=== PATIENT | male | born 1950 | race Caucasian/White ===

== ENCOUNTER → 2018-10-16 09:46 | Outpatient (CLI) | payer MEDICARE, OTHER, SELFPAY ==
--- NOTE | 2018-10-16 09:50 | US_ITS ---
STUDY: ABDOMINAL ULTRASOUND - RIGHT UPPER QUADRANT REASON FOR VISIT: Male, 68 years old. Right upper quadrant pain. TECHNIQUE: Ultrasound evaluation of the right upper quadrant was performed with real-time and static hollins-scale imaging. TECHNICAL QUALITY: Adequate. COMPARISON: CT dated October 17, 2016 FINDINGS: Liver: The liver measures 15.4 cm. There is normal echogenicity of the liver. The bile ducts are within normal limits. There is hepatic color flow. The direction of portal flow is hepatopetal. There is no demonstrated mass lesion. Gallbladder: The patient is status post cholecystectomy. Common Bile Duct (C.B.D.): The common bile duct measures 2.6 mm. Pancreas: Normal size of the head, body and tail of the pancreas. There is normal echogenicity of the pancreas. There is no demonstrated pancreatic mass or cyst. Right Kidney: Normal size of the right kidney. The right kidney measures 10.9 cm in length. Normal renal cortex. There is a simple right renal cyst measuring 6.0 x 6.8 x 6.1 cm. There is no right hydronephrosis. US/Abdomen Limited IMPRESSION: 6.0 x 6.8 x 6.1 cm right renal cyst. Electronically Signed: Manjula Mora MD at 16:53 EST Tel , Service support ,
== END ==
PROVIDERS: Family Provider Internal Medicine; PCP Internal Medicine; Referring Provider Internal Medicine; Visit Provider Internal Medicine
DX: R10.11 Right upper quadrant pain (principal)
CPT/HCPCS: 76705

== ENCOUNTER → 2020-11-24 08:22 | Outpatient (CLI) | payer MEDICARE, OTHER, SELFPAY ==
[2020-11-10 11:12] VITALS: BMI 25.9
--- NOTE | 2020-11-23 | BON_PTH ---
PATIENT: KUMAR RUBALCAVA LOC: [facility] U#:[id number] AGE/SX: 75/M ROOM: RE11/24/[address]: Dr. Allie Castro MD : 1950 BED: DIS: SPEC #: [id number] RECD: 11/24/20 09:21 STATUS: PATY REEdelmira #: [id number] RALPH: 11/23/20 00:[address]: Allie Castro DEPT: SURGICAL PATHOLOGY RECD BY: Lenard Mata ENTERED: 11/24/20 09:21 SP TYPE: Bone OTHR DR: Dr. Mariluz Morris DO Tissues: A - Vertebra, NOS B - Vertebra, NOS Procedures: Decalcification bone/plaque Surgery Specimen Level IV HEADER OPERATION: Kyphoplasty PRE-OP DIAGNOSIS: L4 level compression fracture; T12 level compression fracture TISSUE SUBMITTED: A - Biopsy L4 level, B - Biopsy T12 level MICROSCOPIC DIAGNOSIS A. L4 bone, biopsy: Trilineage hematopoiesis. See comment. B. T12 bone, biopsy: Bone with trilineage hematopoiesis and focal changes consistent with fracture callous. AM:demetrius 11/28/2020 COMMENT A. Sections show a trilineage hematopoiesis that is hypercellular for age. Clinical correlation is suggested. MICROSCOPIC DESCRIPTION Slides are reviewed. GROSS DESCRIPTION A - Received in fixative is one container labeled with the patient's name and designated L4. The specimen consists of multiple fragments of blood clot that in aggregate measure 2.5 x 1.5 x 0.1 cm. No obvious bone is identified. The entire specimen is submitted in one cassette. B - Received in fixative is one container labeled with the patient's name and designated T12. The specimen consists of multiple irregular fragments of hopson soft tissue with possible fragments of bone that in aggregate measure 1.5 x 0.5 x 0.1 cm. The entire specimen is submitted in one cassette after decalcification. / BRANT:demetrius 11/24/20 TC:3 CPT: 79049 x2, 82702
== END ==
PROVIDERS: PCP Internal Medicine; Referring Provider Anesthesiology Pain Medicine; Visit Provider Anesthesiology Pain Medicine
DX: M48.54XA Collapsed vertebra, not elsewhere classified, thoracic region, initial encounter for fracture (principal); M48.56XA Collapsed vertebra, not elsewhere classified, lumbar region, initial encounter for fracture
CPT/HCPCS: 88305; 88311

== ENCOUNTER → 2021-01-09 13:52 | Outpatient (CLI) | payer MEDICARE, OTHER, SELFPAY ==
--- NOTE | 2021-01-09 13:58 | BD_ITS ---
STUDY: DUAL ENERGY X-RAY ABSORPTIOMETRY / DXA REASON FOR EXAM: Male, 70 years old. Hx of compression fx TECHNIQUE: Bone Mineral Density (BMD) measurements of lumbar spine and bilateral hips were obtained. COMPARISON: None. FINDINGS: Lumbar Spine (L1-L4): g/cm2 (1.528) / T-score (2.4) / Z-score (3.0) Findings are suggestive of normal bone density with a low fracture risk. Left Femur Total: g/cm2 (0.942) / T-score (-1.1) / Z-score (-0.3) Left Femoral Neck: g/cm2 (0.824) / T-score (-1.9) / Z-score (-0.6) Right Femur Total: g/cm2 (0.976) / T-score (-0.9) / Z-score (-0.1) Right Femoral Neck: g/cm2 (0.878) / T-score (-1.5) / Z-score (-0.2) BD/Dexa Bone Density Study IMPRESSION: The patient is considered osteopenic as outlined below according to World James Organization (WHO) criteria with a moderate fracture risk. Reference Information: The T-score is the number of standard deviations above or below the standard which is normal for young adults at their peak bone mineral density. The World Health Organization (WHO) interprets the T-scores as follows: Above -1 Normal bone density Between -1 and -2.5 Osteopenia Equal to / or below -2.5 Osteoporosis As a practical clinical guideline, osteopenia may be graded as follows: Mild -1 through -1.5 Moderate -1.6 through -2.0 Severe -2.1 through -2.4 The Z-score is the number of standard deviations above or below age-matched controls. A Z-score of less than -1.5 would be considered abnormal. References: 1. NIH Osteoporosis and Related Bone Diseases www osteo.org 2. International Society for Clinical Densitometry www iscd.org 3. National Osteoporosis Foundation www nof.org Electronically Signed: Gil Bolaños MD at 15:47 EDT , Service support ,
== END ==
PROVIDERS: PCP Internal Medicine; Referring Provider Orthopaedic Surgery; Visit Provider Orthopaedic Surgery
DX: S22.080A Wedge compression fracture of T11-T12 vertebra, initial encounter for closed fracture (principal)
CPT/HCPCS: 77080

== ENCOUNTER → 2021-02-28 16:12 | Outpatient (CLI) | payer MEDICARE, OTHER, SELFPAY ==
--- NOTE | 2021-02-28 16:32 | RAD_ITS ---
STUDY: X-RAY - LUMBAR SPINE REASON FOR EXAM: Male, 70 years old. TRAUMA TECHNIQUE: 2 view(s) of the lumbar spine were obtained. COMPARISON: 12/25/2020 FINDINGS: Normal lumbar lordosis. Mild dextroscoliosis centered at L2. There is a normal alignment of the vertebrae. Mild compression fractures of T12 and L4 treated with vertebroplasty which is unchanged. There is multi-level degenerative disc disease with multi-level disc space narrowing. The soft tissue structures are unremarkable. RAD/Lumbar Spine 2 or 3 Views IMPRESSION: 1. Chronic mild compression fractures of T12 and L4 treated with vertebroplasty. 2. Mild dextroscoliosis with diffuse degenerative disc disease. Electronically Signed: Hitesh Condon MD at 16:59 EDT Tel , Service support ,
--- NOTE | 2021-02-28 16:32 | RAD_ITS ---
STUDY: X-RAY - THORACIC SPINE REASON FOR EXAM: Male, 70 years old. TRAUMA TECHNIQUE: 3 view(s) of the thoracic spine were obtained. COMPARISON: None. FINDINGS: Normal kyphosis of the thoracic spine. There is no substantial scoliosis. There is multilevel endplate spondylosis of the thoracic vertebrae. There is multilevel disc space narrowing of the thoracic spine. Chronic mild compression fracture of T12 treated with vertebroplasty. The soft tissue structures are unremarkable. RAD/Thoracic Spine 2 Views IMPRESSION: No acute fracture or subluxation. Electronically Signed: Hitesh Condon MD at 17:02 EDT Tel , Service support ,
== END ==
PROVIDERS: PCP Internal Medicine; Referring Provider Anesthesiology Pain Medicine; Visit Provider Anesthesiology Pain Medicine
DX: Z04.3 Encounter for examination and observation following other accident (principal); M51.36 Other intervertebral disc degeneration, lumbar region
CPT/HCPCS: 72070; 72100

== ENCOUNTER → 2021-03-28 13:37 | Outpatient (CLI) | payer MEDICARE, OTHER, SELFPAY ==
--- NOTE | 2021-03-28 13:43 | RAD_ITS ---
STUDY: X-RAY - THORACIC SPINE REASON FOR EXAM: Male, 70 years old. BACK PAIN TECHNIQUE: 3 view(s) of the thoracic spine were obtained. COMPARISON: None. FINDINGS: There is an increase in the normal thoracic kyphosis. There is no substantial scoliosis. There is demineralization of the thoracic spine with endplate spondylosis. There is multilevel disc space narrowing of the thoracic spine. The soft tissue structures are unremarkable. RAD/Thoracic Spine 3 Views IMPRESSION: Multilevel disc space narrowing and spondylosis. Increased kyphosis. Electronically Signed: Gil Bolaños MD at 15:27 EDT , Service support ,
== END ==
PROVIDERS: PCP Internal Medicine; Referring Provider Anesthesiology Pain Medicine; Visit Provider Anesthesiology Pain Medicine
DX: M54.9 Dorsalgia, unspecified (principal)
CPT/HCPCS: 72072

== ENCOUNTER → 2022-06-10 | Outpatient (CLI) | payer MEDICARE, OTHER, SELFPAY ==
--- NOTE | 2022-06-10 15:58 | CT_ITS ---
STUDY: CT BRAIN WITHOUT CONTRAST REASON FOR EXAM: Male, 72 years old. Severe new onset duque, male over 50. RADIATION DOSAGE (If Supplied By Facility): CTDIvol = ( 44.99 ) mGy, DLP = ( 762.36 ) mGycm TECHNIQUE: Transaxial CT imaging of the brain was performed without administration of intravenous contrast material. Individualized dose optimization techniques were used for this CT. COMPARISON: 03/18/2016 FINDINGS: Normal soft tissue structures. Normal calvarium. Calcific plaquing of cavernous carotids Mild atrophy and periventricular white matter ischemic changes. Normal basal ganglia and thalami. Normal brainstem. Normal cerebellum. There is no intracranial hemorrhage. There are no findings of an acute ischemic infarction. Postsurgical changes of the orbits Normal visualized paranasal sinuses. No significant interval change since prior exam CT/Brain/Head without Contrast IMPRESSION: Mild atrophy and periventricular white matter ischemic change. No evidence for obstructive hydrocephalus mass or acute bleed. Electronically Signed: Jeferson Nolan MD at 16:22 EDT ,
--- NOTE | 2022-06-10 16:04 | RAD_ITS ---
STUDY: X-RAY - CERVICAL SPINE REASON FOR EXAM: Male, 72 years old. headaches with radiation to trap., arms TECHNIQUE: XR Spine Cervical 4 or 5 Views COMPARISON: None FINDINGS: Normal anterior atlantoaxial articulation. No acute findings of the odontoid process. There is straightening of the normal cervical lordosis. There is multi-level endplate spondylosis. There is multi-level degenerative disc disease with multilevel disc space narrowing. There is multi-level osseous foraminal stenosis. The soft tissue structures are unremarkable. RAD/Cerv Spine 2 or 3 Views IMPRESSION: There are degenerative changes as noted above. Electronically Signed: Fidencio Soler MD at 17:42 EDT ,
== END | disposition home or self-care (01) ==
PROVIDERS: PCP Internal Medicine; Referring Provider Nurse Practitioner Family; Visit Provider Nurse Practitioner Family
DX: R51.9 Headache, unspecified (principal)
CPT/HCPCS: 70450; 72040

== ENCOUNTER → 2024-04-19 | Outpatient (CLI) | payer MEDICARE, OTHER, SELFPAY ==
--- NOTE | 2024-04-19 15:30 | RAD_ITS ---
STUDY: X-RAY - LUMBAR SPINE REASON FOR EXAM: Male, 73 years old. RADICULOPATHY,LUMBAR REGION SCIATICA,UNSPECIFIED SIDE TECHNIQUE: 3 view(s) of the lumbar spine were obtained. COMPARISON: None FINDINGS: Normal lumbar lordosis. There is no substantial scoliosis. There is a normal alignment of the vertebrae. Mild compression fractures of the T12 and L4 vertebral bodies treated with vertebroplasty. No acute compression fracture. There is multi-level degenerative disc disease with multi-level disc space narrowing. Multilevel facet hypertrophy in the lower lumbar spine. The soft tissue structures are unremarkable. RAD/Lumbar Spine 2 or 3 Views IMPRESSION: 1. Compression fractures of T12 and L4 treated with vertebral plasty. 2. Diffuse degenerative disc disease. Electronically Signed: Hitesh Condon MD at 10:22 EDT ,
== END | disposition home or self-care (01) ==
PROVIDERS: PCP Internal Medicine; Referring Provider Anesthesiology Pain Medicine; Visit Provider Anesthesiology Pain Medicine
DX: M51.36 Other intervertebral disc degeneration, lumbar region (principal); M51.16 Intervertebral disc disorders with radiculopathy, lumbar region
CPT/HCPCS: 72100

== ENCOUNTER → 2025-04-26 | Outpatient (CLI) | payer MEDICARE, OTHER, SELFPAY ==
--- NOTE | 2025-04-25 13:10 | LES_PTH ---
PATIENT: KUMAR RUBALCAVA [facility] U#:[id number] AGE/SX: 74/M ROOM: RE04/26/[address]: Dr. Maurilio Kerns MD : 1950 BED: DIS: 04/26/2025 SPEC #: [id number] RECD: 04/26/25 16:54 STATUS: PATY REEdelmira #: [id number] RALPH: 04/25/25 13:[address]: Maurilio Kerns DEPT: SURGICAL PATHOLOGY RECD BY: Efra Wilkes ENTERED: 04/27/25 09:05 SP TYPE: Lesion OTHR DR: Dr. Mariluz Morris, DO Tissues: A - Skin of nose, NOS Procedures: Surgery Specimen Level IV HEADER OPERATION: Excision nasal lesion, left PRE-OP DIAGNOSIS: Abscess, furuncle and carbuncle of nose TISSUE SUBMITTED: A- Left nasal lesion- left nasal vestibule ulcer MICROSCOPIC DIAGNOSIS A. Skin, nose, left, excisional biopsy: * Basal cell carcinoma (See note) Note: The lesion is excised in the planes of sectioning examined. The slides are reviewed with Aston Bennett MD in consultation. MICROSCOPIC DESCRIPTION Slides are reviewed. GROSS DESCRIPTION A. Received in formalin labeled with the patient's name and date of . Designated as L nasal vestibule ulcer is a 0.6 x 0.5 x 0.1 cm irregular portion of hopson apparent skin devoid of orientation. The resection margin is inked black. The epidermal surface is hypopigmented with a central, 0.2 x 0.1 cm hopson-yellow, possible ulceration located 0.2 cm from the peripheral edge. The specimen is trisected and entirely submitted in 1 cassette. [place] 04/27/2025 CPT:35898
--- NOTE | 2025-04-25 13:10 | LES_PTH ---
PATIENT: KUMAR RUBALCAVA [facility] U#:[id number] AGE/SX: 74/M ROOM: RE04/26/[address]: Dr. Maurilio Kerns MD : 1950 BED: DIS: 04/26/2025 SPEC #: [id number] RECD: 04/26/25 16:54 STATUS: PATY REEdelmira #: [id number] RALPH: 04/25/25 13:[address]: Maurilio Kerns DEPT: SURGICAL PATHOLOGY RECD BY: Efra Wilkes ENTERED: 04/27/25 09:05 SP TYPE: Lesion OTHR DR: Dr. Mariluz Morris, DO Tissues: A - Skin of nose, NOS Procedures: Surgery Specimen Level IV HEADER OPERATION: Excision nasal lesion, left PRE-OP DIAGNOSIS: Abscess, furuncle and carbuncle of nose TISSUE SUBMITTED: A- Left nasal lesion- left nasal vestibule ulcer MICROSCOPIC DIAGNOSIS A. Skin, nose, left, excisional biopsy: * Basal cell carcinoma (See note) Note: The lesion is excised in the planes of sectioning examined. The slides are reviewed with Aston Bennett MD in consultation. MICROSCOPIC DESCRIPTION Slides are reviewed. GROSS DESCRIPTION A. Received in formalin labeled with the patient's name and date of . Designated as L nasal vestibule ulcer is a 0.6 x 0.5 x 0.1 cm irregular portion of hopson apparent skin devoid of orientation. The resection margin is inked black. The epidermal surface is hypopigmented with a central, 0.2 x 0.1 cm hopson-yellow, possible ulceration located 0.2 cm from the peripheral edge. The specimen is trisected and entirely submitted in 1 cassette. [place] 04/27/2025 CPT:94883
== END | disposition home or self-care (01) ==
PROVIDERS: PCP Internal Medicine; Referring Provider Otolaryngology; Visit Provider Otolaryngology
DX: J34.0 Abscess, furuncle and carbuncle of nose (principal)
CPT/HCPCS: 88305

== ENCOUNTER → 2025-06-15 | Outpatient (CLI) | payer MEDICARE, OTHER, SELFPAY ==
[2025-06-15 18:04] LABS: Hematocrit 39.6 % (40-54); Hemoglobin 13.6 g/dL (13.0-16.5); Immature Granulocytes Count 0.020 X10^3/uL (0.0-0.0); Mean Corp Hgb Conc 34.3 g/dL (32-36); Mean Corpuscular Volume 87.8 fL (80-94); Mean Platelet Vol. 11.5 fl (6.2-12.0); NRBC Flagged by Analyzer 0 % (0-5); Platelet Count 193 K/mm3 (150-450); RBC Distribution Width CV 12.7 % (11.6-14.6); RBC Distribution Width SD 41.1 fl (35.1-43.9); Red Blood Count 4.51 M/mm3 (4.6-6.2); White Blood Count 7.8 K/mm3 (4.4-11.0)
[2025-06-15 18:50] LABS: AST(SGOT) 23 U/L (<=37); Alanine Aminotransfer ALT/SGPT 22 U/L (<=46); Albumin, Serum 4.2 g/dL (3.4-4.8); Alkaline Phosphatase 82 U/L (40-129); Anion Gap 13 (5-15); BUN 14 mg/dL (4-19); BUN/Creat Ratio 14.4 RATIO (10-20); Calcium,Total 9.0 mg/dL (7.6-11.0); Carbon Dioxide 22.6 mmol/L (21.0-32.0); Chloride 103 mmol/L (98-108); Globulin 2.2 g/dL (2.2-4.2); Glucose 95 mg/dL (70-99); HIV Nonreactive (Nonreactive); Hepatitis C Antibody Nonreactive (Nonreactive); Magnesium 2.2 mg/dL (1.5-2.2); Potassium 3.5 mmol/L (3.3-5.1); Vitamin B12 605 pg/mL (180-914); Vitamin D,25 Hydroxy 56.7 ng/mL (30-100)
[2025-06-17 15:08] LABS: ANTINUCLEAR ANTIBODIES DIRECT Negative (Negative)
== END | disposition home or self-care (01) ==
LOC: MTLAB 15:57
PROVIDERS: PCP Internal Medicine; Referring Provider Internal Medicine; Visit Provider Internal Medicine
DX: G47.62 Sleep related leg cramps (principal); R20.0 Anesthesia of skin; E55.9 Vitamin D deficiency, unspecified
CPT/HCPCS: 36415; 80053; 82306; 82607; 83036; 83735; 84443; 85025; 85652; 86038; 86703; 86803

== ENCOUNTER → 2025-07-13 | Outpatient (CLI) | payer MEDICARE, OTHER, SELFPAY ==
--- NOTE | 2025-07-13 13:46 | NEURO ---
NCS and/or EMG Patient Report Ordering Doctor: Mariluz Morris DATE OF SERVICE: 07/13/25 Jose presents complaints of numbness and tingling in both lower legs, slightly worse on the left side. He reports frequent muscle spasms. He has intermittent lower back pain. Electrodiagnostic findings: Peroneal motor nerve on the left side demonstrates normal distal latency, amplitude with reduced conduction velocity. No significant drop in conduction across the fibular head. Right peroneal motor nerve demonstrates normal distal latency with reduced amplitude and reduced conduction velocity. Normal tibial motor latency bilaterally with decreased amplitudes. Normal tibial motor conduction velocity is noted. Prolonged tibial and peroneal F–waves. Prolonged H–reflex bilaterally. Absent sural response bilaterally. Prolonged left superficial peroneal latency. Needle EMG testing was performed in the lower limbs. All muscles tested showed no evidence of denervation with normal motor unit potentials. 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 2 No electrodiagnostic evidence is noted for lumbosacral radiculopathy. Multi Select Codes Neurology Neurology Interp Codes: 08299-47 Musc test done w/n test comp (interp) (2) and 94341-03 Nrv cndj test 9-10 studies (interp)
== END | disposition home or self-care (01) ==
PROVIDERS: PCP Internal Medicine; Referring Provider Internal Medicine; Visit Provider Internal Medicine
DX: R20.0 Anesthesia of skin (principal)
CPT/HCPCS: 95886; 95911